=== PATIENT | male | born 1965 | race Caucasian/White ===

== ENCOUNTER 2018-05-01 08:19 | Day surgery (SDC) | payer OTHER ==
[~2018-05-01] VITALS: Ht 180.3 cm; Wt 158.8 kg
[2018-05-01] MEDS ORDERED: GABA300C PO (09:21)
[2018-05-01] MEDS ORDERED: CLON0.5T PO (09:21)
[2018-05-01] MEDS ORDERED: OMEP20TC12 PO (09:21)
[2018-05-01] MEDS ORDERED: ZYL300 PO (09:21)
[2018-05-01] MEDS ORDERED: DICL-388 PO (09:21)
[2018-05-01] MEDS ORDERED: ATA25 PO (09:21)
[2018-05-01] MEDS ORDERED: VITA1TAB44 PO (09:21)
[2018-05-01] MEDS ORDERED: BUS5 PO (09:21)
[2018-05-01] MEDS ORDERED: ATOR20TA PO (09:21)
[2018-05-01] MEDS ORDERED: PRED10TA6 PO (09:21)
[2018-05-01] MEDS ORDERED: ASPI-1718 PO (09:21)
[2018-05-01] MEDS ORDERED: HYDR-5092 PO (09:21)
[2018-05-01] MEDS ORDERED: MEX2.5 (09:21)
[2018-05-01] MEDS ORDERED: ORE25 PO (09:21)
[2018-05-01] MEDS ORDERED: VIT1TABL36 PO (09:21)
[2018-05-01] MEDS ORDERED: SINE10 PO (09:21)
[2018-05-01] MEDS ORDERED: LIDOCAINE 2% 100 MG/5 ML UJET TP ONE (10:09)
[2018-05-01] MEDS ORDERED: fentaNYL 0.05 MG/ML VIAL ONE (10:09)
== END 2018-05-01 11:05 | disposition home or self-care (01) ==
LOC: MDS 08:19 → MMU 08:20 → MDS 11:05
PROVIDERS: ATTEND Internal Medicine Gastroenterology
DX: K57.30 Diverticulosis of large intestine without perforation or abscess without bleeding (principal); R19.5 Other fecal abnormalities
CPT/HCPCS: 45378; J3010